=== PATIENT | male | born 1975 | race Caucasian/White ===

== ENCOUNTER 2022-10-25 16:23 | Emergency (ER) | payer OTHER, SELFPAY ==
[2022-10-25] VITALS (9 sets, daily range): BP systolic 95–136; BP diastolic 63–88; PULSE 54–96; RESP 16–18; TEMP 36.5–36.7; O2SAT 93–99; BMI 26.9
--- NOTE | 2022-10-25 16:35 | XR_ITS ---
PROCEDURE INFORMATION: Exam: XR Right Tibia and Fibula Exam date and time: 10/25/2022 4:35 PM Age: 46 years old Clinical indication: Pain; Ankle; Right; Additional info: Pain, h/o infected FX TECHNIQUE: Imaging protocol: Radiologic exam of the right tibia and fibula. Views: 2 views. COMPARISON: No relevant prior studies available. FINDINGS: Bones/joints: Sclerosis and lucencies in the distal tibia may correspond to the history of infected fracture. It is incompletely healed. Persistent lucencies are seen anteriorly. Soft tissues: Soft tissue swelling of the medial and lateral malleolus IMPRESSION: Sclerosis and lucencies in the distal tibia may correspond to the history of infected fracture. It is incompletely healed. Persistent lucencies are seen anteriorly.
--- NOTE | 2022-10-25 16:35 | XR_ITS ---
PROCEDURE INFORMATION: Exam: XR Right Ankle Exam date and time: 10/25/2022 4:35 PM Age: 46 years old Clinical indication: Pain; Ankle; Right; Additional info: Pain, h/o infected FX TECHNIQUE: Imaging protocol: Radiologic exam of the right ankle. Views: 3 or more views. COMPARISON: No relevant prior studies available. FINDINGS: Bones/joints: Sclerosis and lucency persists in the distal tibia consistent with a history of infected fracture. Soft tissues: Soft tissue swelling along the distal lower leg and ankle.. IMPRESSION: 1. Soft tissue swelling along the distal lower leg and ankle.. 2. Sclerosis and lucency persists in the distal tibia consistent with a history of infected fracture.
--- NOTE | 2022-10-25 16:35 | XR_ITS ---
PROCEDURE INFORMATION: Exam: XR Right Foot Exam date and time: 10/25/2022 4:35 PM Age: 46 years old Clinical indication: Pain; Ankle; Right; Additional info: Pain, h/o infected FX TECHNIQUE: Imaging protocol: Radiologic exam of the right foot. Views: 3 or more views. COMPARISON: No relevant prior studies available. FINDINGS: Bones/joints: Hallux valgus deformity of the great toe. Degenerative changes in the IP joint and 1st metatarsal-phalangeal joint. Osteopenia. Lucency and sclerosis in the distal tibia consistent with the history of infected fracture. Soft tissues: Normal. IMPRESSION: Lucency and sclerosis in the distal tibia consistent with the history of infected fracture.
--- NOTE | 2022-10-25 16:42 | HMH.EDGENADL ---
Discharge Plan Disposition Chief Complaint: Extremity Injury, Lower Referrals Follow up/Referrals: Provider,Referral, [Referring] - See instructions Clinical Impressions Clinical Impression: Osteomyelitis of right tibia Discharge ED Provider: Rose Grissom General Adult HPI General Chief complaint: Extremity Injury, Lower Stated complaint: RT let swollen Time Seen by Provider: 10/25/22 16:35 Mode of Arrival: Ambulatory Source of Information: Patient Limitations: No Limitations Description of Symptoms (Recalled from ER Triage Doc. by RN): Pt stated that he was in [facility] for the last 8 years was released on wed. While in [facility] he broke his foot and developed a bone infection. It was never fully taken care of. He is complaining of right pain going down from mid History of Present Illness HPI narrative: This patient is a 46-year-old male with a history of hepatitis C presenting to the emergency department for evaluation with concern for bone infection of his right foot/ankle. He reports that back in April, he broke his right tibia in 2 places. He developed significant swelling, blistering, and pus pockets over this area, so he was admitted to the hospital spent 21 days in the hospital for bone infection. He states that he had surgery and was supposed to be on antibiotics for an extended period of time after discharge, however the present only given antibiotics for 2 weeks. He is also supposed to be nonweightbearing for an extended period of time, however they made him bear weight and put them in general population. He said that he has progressively had worsening redness, swelling, warmth, and pain to his right ankle. He is also having an increase in pain and difficulty bearing weight. He is concerned that the infection is back. He states that he was just released on Wednesday and rode a bus here. No history of blood clots or clotting disorders. He does not take any anticoagulation. Related Data Allergies Allergy/AdvReac Type Severity Reaction Status Date / Time No Known Allergies Allergy Verified 10/25/22 16:38 [facility] Disclaimer: The information contained in this section may have been updated after the patient was seen, as this information can be updated by other users. Social History Smoking Status: Current every day smoker alcohol intake: never current occupational status: unemployed Travel in the last 8 weeks: Inside the [place] ROS Obtained: Yes All systems reviewed & no additional complaints except as documented Physical Exam General General appearance: alert and in no apparent distress Head Head exam: atraumatic and normocephalic Eye Eye exam: Present normal appearance, PERRL and EOMI ENT ENT exam: Present normal exam, normal oropharynx, mucous membranes moist and normal external ear exam Neck Neck exam: Present normal inspection, full ROM and trachea midline; Absent tenderness Chest Chest inspection: Present normal inspection and symmetric chest wall rise; Absent tenderness Respiratory Respiratory exam: Present normal lung sounds bilaterally; Absent respiratory distress, wheezes, stridor or accessory muscle use Cardiovascular Cardiovascular exam: Present regular rate and normal rhythm Abdominal Exam Abdominal exam: Present soft; Absent distention, tenderness or guarding Extremities Exam Extremities exam: Present full ROM, tenderness, normal capillary refill, edema and calf tenderness Expanded Lower Extremity Exam Right: Hip/Pelvis exam: Present normal inspection Upper leg exam: Present normal inspection Knee exam: Present normal inspection Lower leg exam: Present tenderness, swelling, erythema and other (Swelling, tenderness, and redness of the right lower leg. Mild calf tenderness.) Ankle exam: Present tenderness, swelling, erythema and other (Tenderness, swelling, and erythema with old well-healed s
--- NOTE | 2022-10-25 16:46 | PC.NURSE ---
RAD at [facility] for XRAY
--- NOTE | 2022-10-25 17:29 | CT_ITS ---
PROCEDURE INFORMATION: Exam: CT Right Lower Extremity With Contrast; Lower Leg Exam date and time: 10/25/2022 6:17 PM Age: 46 years old Clinical indication: Pain; Lower leg; Right; Additional info: Pain, h/o infected FX and deep tissue abscess TECHNIQUE: Imaging protocol: CT of the right lower extremity with intravenous contrast was performed. Exam focused on the lower leg. Radiation optimization: All CT scans at this facility use at least one of these dose optimization techniques: automated exposure control; mA and/or kV adjustment per patient size (includes targeted exams where dose is matched to clinical indication); or iterative reconstruction. Contrast material: ISOVUE; Contrast volume: 120 ml; Contrast route: IV; REPORTING DATA: Count of CT and Cardiac NM exams in prior 12 months: This patient has received 0 known CTs and 0 known cardiac nuclear medicine studies in the 12 months prior to the current study. COMPARISON: CR XR TIBIA FIBULA RT 2V 10/25/2022 4:35 PM FINDINGS: Bones/joints: There is prominent partial osseous erosion and moderate periostitis of the distal tibia without intra-articular extension. Findings are compatible with either active or previously treated osteomyelitis/bone abscess. Osseous structures otherwise appear normal. Fibula is intact. No acute fracture or arthritic change. Soft tissues: Diffuse subcutaneous soft tissue edema of the right lower lobe. No loculated soft tissue fluid collection. IMPRESSION: Findings compatible with active or previously treated osteomyelitis of the distal tibia, including partial osseous erosion and periostitis. Moderate surrounding soft tissue edema noted. No discrete soft tissue abscess.
[2022-10-25 17:31] LABS: Chloride 102 mmol/L (98-107); Potassium 3.7 mmoL/L (3.5-5.1); Sodium 142 mmol/L (136-145)
[2022-10-25 17:32] LABS: Basophils # 0.1 K/mm3 (0-0.2); Basophils % 1.2 % (0.1-2.0); Eosinophils # 0.3 K/mm3 (0.0-0.4); Eosinophils % 5.4 % (0.1-12.0); Hematocrit 44.7 % (42.0-52.0); Hemoglobin 14.8 g/dL (14.1-18.0); Lymphocytes # 1.8 K/mm3 (0.7-4.5); Lymphocytes % 30.3 % (10-50); Mean Corpuscular HGB Conc 33.2 g/dL (31.8-35.4); Mean Corpuscular Hemoglobin 34.5 pg (27.0-31.2); Mean Platelet Volume 7.3 fl (7.4-10.4); Monocytes # 0.4 K/mm3 (0.1-1.0); Monocytes % 6.4 % (1.7-9.3); Neutrophils # 3.4 K/mm3 (1.8-7.8); Neutrophils % 56.7 % (37.0-80.0); Platelet Count 265 K/mm3 (142-424); Red Cell Distribution Width 12.9 % (11.5-17.5)
[2022-10-25 17:34] LABS: Alanine Aminotransferase 47 U/L (12-78); Albumin Level 3.4 g/dl (3.5-5.0); Albumin/Globulin Ratio 1.4 (1.1-1.8); Alkaline Phosphatase 119 U/L (38-126); Anion Gap 13.7 mEq/L (5-15); Aspartate Amino Transferase 56 U/L (17-59); Bilirubin,Total 0.4 mg/dl (0.2-1.3); Blood Urea Nitrogen 21 mg/dl (9-20); Carbon Dioxide 30 mmol/L (22.0-30.0); Creatinine Clearance Estimated 96 mL/min (50-200); Estimated Glomerular Filt Rate 65 ml/min (>60); GFR (African American) 78 ML/MIN (>60); Globulin 2.5 g/dL (1.3-3.2); Total Protein,Serum 5.9 g/dl (6.3-8.2)
[2022-10-25 17:35] LABS: Calcium 8.6 mg/dl (8.4-10.2); Glucose 98 mg/dl (74-100)
[2022-10-25 17:36] LABS: Lactic Acid 1.4 mmol/L (0.7-2.1)
[2022-10-25 17:39] LABS: D-Dimer 0.53 ug/mL (0.0-0.5)
[2022-10-25 17:40] LABS: C-Reactive Protein 5.9 mg/L (0-4)
[2022-10-25 17:59] LABS: Erythrocyte Sedimentation Rate 13 mm/hr (0-15)
--- NOTE | 2022-10-25 19:07 | PC.NURSE ---
Dr. Jeronimo pagesultana
--- NOTE | 2022-10-25 19:08 | PC.NURSE ---
registration called back and advised that she had to leave Dr. Jeronimo a message.
--- NOTE | 2022-10-25 19:10 | PC.NURSE ---
Dr. Grissom speaking with Dr. Jeronimo
--- NOTE | 2022-10-25 19:16 | PC.NURSE ---
Spoke with [facility] about possible transfer. Advised they would call back when the MD is available.
--- NOTE | 2022-10-25 19:27 | PC.NURSE ---
pt laying in bed talking on phone, updated on possible transfer, denies any needs.
--- NOTE | 2022-10-25 19:32 | PC.NURSE ---
Dr. Grissom speaking with Dr. Mcdaniel about possible transfer
--- NOTE | 2022-10-25 19:41 | PC.NURSE ---
received return call from dr inman @ [facility]
--- NOTE | 2022-10-25 19:43 | PC.NURSE ---
[facility] advised they did not have foot and ankle and suggesting calling [facility]
--- NOTE | 2022-10-25 19:48 | PC.NURSE ---
Spoke with Hiral at transfer center. Advised they would call back when they received scans.
--- NOTE | 2022-10-25 19:53 | PC.NURSE ---
Dr. Grissom speaking with MD at [facility]
--- NOTE | 2022-10-25 20:38 | PC.NURSE ---
call placed to charge for med
== END 2022-10-25 21:19 | disposition critical access hospital (66) ==
PROVIDERS: Emergency Provider Emergency Medicine; PCP Radiology Diagnostic Radiology
DX: M86.161 Other acute osteomyelitis, right tibia and fibula (principal); F17.200 Nicotine dependence, unspecified, uncomplicated
CPT/HCPCS: 73590; 73610; 73630; 73701; 80053; 83605; 85025; 85378; 85651; 86140; 87040; 96374; 99285; Q9967

== ENCOUNTER 2022-11-16 13:37 | Emergency (ER) | payer MEDICAID, SELFPAY ==
[2022-11-16] VITALS (7 sets, daily range): BP systolic 119–139; BP diastolic 74–96; PULSE 66–85; RESP 16; TEMP 36.6–37.2; O2SAT 97–100; BMI 27.1
--- NOTE | 2022-11-16 16:08 | PC.NURSE ---
ER MD snider at
--- NOTE | 2022-11-16 16:33 | HMH.EDGENADL ---
Discharge Plan Disposition Patient Disposition: Home, Self-Care Referrals Follow up/Referrals: Provider,Referral, [Primary Care Provider] - See instructions Activity Restrictions/Add. Instructions Additional Instructions/Restrictions: Discontinue antibiotics for tonight. In the morning, call team at [facility] who is managing your medications and osteomyelitis care in the morning. Work-up today is unconcerning for any acute pathology necessitating admission. Call your family doctor to establish care for this visit to the emergency department and schedule follow-up within 48 hours to ensure improvement. If you have any worsening of your condition or any other concerning signs or symptoms, return to the emergency department or your primary care doctor for further evaluation. Clinical Impressions Clinical Impression: Osteomyelitis of right tibia, Drug reaction Instructions Patient Instructions: DI for Skin Abscess Discharge ED Provider: Daryn Mina General Adult HPI General Chief complaint: Skin/Abscess/Foreign Body Stated complaint: rash all over, pickline in LT arm Time Seen by Provider: 11/16/22 16:03 Mode of Arrival: Ambulatory Source of Information: Patient Limitations: No Limitations Description of Symptoms (Recalled from ER Triage Doc. by RN): Pt reports rash that started yesterday, red, hives and welps. Pt reports d/c from [facility] 5 days ago, sent home home with PICC line doing daily daptomycin IV and cefepime every 8 hours per IV. Pt reports no new changes in medications. Rash around picc line area, lower back, julissa flanks History of Present Illness HPI narrative: 46-year-old male with history of osteomyelitis of right tibia discharged from [facility] 5 days prior to arrival with PICC line and infusions of daptomycin and cefepime presenting with rash. Patient states that he has a rash on his trunk, lower extremities. Spares palms and soles. No oral, ocular lesions. Patient denies any blood per rectum, difficulty or pain with swallowing, abdominal pain, but states that his urine has been dark., But states that his urine has been dark. No fevers or chills, or any other concerns. Related Data Allergies Allergy/AdvReac Type Severity Reaction Status Date / Time No Known Allergies Allergy Verified 10/25/22 16:38 [facility] Disclaimer: The information contained in this section may have been updated after the patient was seen, as this information can be updated by other users. Social History (Updated 10/25/22 @ 19:59 by Rose Grissom DO) Smoking Status: Never smoker alcohol intake: never current occupational status: unemployed Travel in the last 8 weeks: Inside the [place] ROS Obtained: Yes All systems reviewed & no additional complaints except as documented Physical Exam General General appearance: alert, in no apparent distress and other ( ) Head Head exam: atraumatic and normocephalic Eye Eye exam: Present normal appearance, PERRL and EOMI ENT ENT exam: Present mucous membranes moist Neck Neck exam: Present normal inspection, full ROM and trachea midline Respiratory Respiratory exam: Absent respiratory distress, wheezes, stridor, accessory muscle use or prolonged expiratory phase Cardiovascular Cardiovascular exam: Present regular rate and normal rhythm Abdominal Exam Abdominal exam: Present soft; Absent distention, tenderness, guarding, rebound, rigidity or normal bowel sounds Extremities Exam Extremities exam: Absent edema Neurological Exam Neurological exam: Present alert, oriented X3, CN II-XII intact and normal gait; Absent motor sensory deficit Skin Skin exam: Present warm, dry and rash (Erythematous, macular, blanching rash on trunk and bilateral upper and lower extremities. Central clearing. Spares palms and soles. No mucous membrane involvement.); Absent diaphoresis or erythema Medical Decision Making Medical Recor
[2022-11-16 17:19] LABS: Microscopic, Urine URINE MICROSCOPIC (MICROSCOPIC)
[2022-11-16 17:22] LABS: Appearance,Urine CLEAR (Clear); Bilirubin,Urine Negative (Negative); Blood, Urine Negative (Negative); Color,Urine YELLOW (Yellow); Glucose,Urine (UA) Negative (Negative); Ketones,Urine Negative (Negative); Leukocyte Esterase,Urine Negative (Negative); Nitrate,Urine Negative (Negative); Protein,Urine Negative (Negative); Urobilinogen,Urine 0.2 EU/dl (0.2)
[2022-11-16 17:35] LABS: Squamous Epithelial Cell,Urine Occasional #/hpf (0-5)
[2022-11-16 18:50] LABS: Basophils # 0.1 K/mm3 (0-0.2); Basophils % 1.1 % (0.1-2.0); Eosinophils # 0.3 K/mm3 (0.0-0.4); Eosinophils % 4.8 % (0.1-12.0); Hemoglobin 15.1 g/dL (14.1-18.0); Lymphocytes # 1.5 K/mm3 (0.7-4.5); Lymphocytes % 27.1 % (10-50); Mean Corpuscular HGB Conc 31.5 g/dL (31.8-35.4); Mean Corpuscular Hemoglobin 33.1 pg (27.0-31.2); Monocytes # 0.3 K/mm3 (0.1-1.0); Monocytes % 5.6 % (1.7-9.3); Neutrophils # 3.3 K/mm3 (1.8-7.8); Neutrophils % 61.4 % (37.0-80.0); Platelet Count 277 K/mm3 (142-424); Red Blood Count 4.57 M/mm3 (4.60-6.20); White Blood Count 5.4 K/mm3 (4.8-10.8)
[2022-11-16 18:51] LABS: Chloride 103 mmol/L (98-107); Sodium 137 mmol/L (136-145)
[2022-11-16 18:52] LABS: Potassium 4.1 mmoL/L (3.5-5.1)
[2022-11-16 18:54] LABS: Alanine Aminotransferase 54 U/L (12-78); Albumin Level 3.9 g/dl (3.5-5.0); Albumin/Globulin Ratio 1.4 (1.1-1.8); Alkaline Phosphatase 137 U/L (38-126); Anion Gap 11.1 mEq/L (5-15); Aspartate Amino Transferase 53 U/L (17-59); Bilirubin,Total 0.7 mg/dl (0.2-1.3); Blood Urea Nitrogen 16 mg/dl (9-20); Carbon Dioxide 27 mmol/L (22.0-30.0); Creatine Kinase 44 U/L (55-170); Creatinine Clearance Estimated 145 mL/min (50-200); Estimated Glomerular Filt Rate 103 ml/min (>60); GFR (African American) 125 ML/MIN (>60); Globulin 2.8 g/dL (1.3-3.2); Glucose 99 mg/dl (74-100); Total Protein,Serum 6.7 g/dl (6.3-8.2)
--- NOTE | 2022-11-16 19:55 | PC.NURSE ---
spouse and patient updated on status of labs and that doctor will be in to talk to them
[2022-11-16 20:22] LABS: Lactic Acid 1.3 mmol/L (0.7-2.1)
--- NOTE | 2022-11-16 20:58 | PC.NURSE ---
positive pulses noted in both lower extremities, sensation intact. rash improved, denies soa
== END 2022-11-16 21:10 | disposition home or self-care (01) ==
PROVIDERS: Emergency Provider Emergency Medicine
DX: R21 Rash and other nonspecific skin eruption (principal); M86.161 Other acute osteomyelitis, right tibia and fibula; T36.95XA Adverse effect of unspecified systemic antibiotic, initial encounter
CPT/HCPCS: 36415; 80053; 81001; 82550; 83605; 85025; 87040; 96365; 96375; 99285